=== PATIENT | male | born 1955 | race Caucasian/White ===

== ENCOUNTER 2022-10-02 14:53 | Emergency (ER) | payer MEDICARE, OTHER ==
[~2022-10-02] VITALS: Ht 195 cm; Wt 97.0 kg
[2022-10-02] MEDS ORDERED: NS IV 1000 ML 1,000 ML IV SCH ×3 (15:15→19:00)
[2022-10-02] MEDS ORDERED: ONDANSETRON 4 MG/2 ML (SDV) Z0FRAN IVP ONE (15:15)
[2022-10-02 15:36] LABS: BASOPHILS % (AUTO) 0 % (0-10); EOSINOPHILS # (AUTO) 0.1 10^3/uL (0.0-0.3); EOSINOPHILS % (AUTO) 0 % (0-10); LYMPHOCYTES # (AUTO) 0.9 10^3/uL (1.0-4.0); LYMPHOCYTES % (AUTO) 4 % (12-44); MEAN CORPUSCULAR HEMOGLOBIN 31 pg (25-34); MEAN CORPUSCULAR HGB CONC 36 g/dL (32-36); MEAN CORPUSCULAR VOLUME 86 fL (80-99); MEAN PLATELET VOLUME 11.2 fL (9.0-12.2); MONOCYTES # (AUTO) 1.6 10^3/uL (0.0-1.0); MONOCYTES % (AUTO) 7 % (0-12); NEUTROPHILS # (AUTO) 19.4 10^3/uL (1.8-7.8); NEUTROPHILS % (AUTO) 86 % (42-75); PLATELET COUNT 247 10^3/uL (130-400); WHITE BLOOD COUNT 22.5 10^3/uL (4.3-11.0)
[2022-10-02 15:43] LABS: HEMOGLOBIN 4.3 g/dL (13.3-17.7)
[2022-10-02 15:44] LABS: HEMATOCRIT 12 % (40-54)
--- NOTE | 2022-10-02 15:48 | Diagnostic Imaging Report ---
EXAMINATION: CT abdomen and pelvis without contrast. TECHNIQUE: Multiple contiguous axial images were obtained through the abdomen and pelvis without the use of intravenous contrast. All CT scans use one or more of the following dose optimizing techniques: Automated exposure control, MA and/or KvP adjustment based on patient size and exam type or iterative reconstruction. HISTORY: Abdominal pain, nausea and vomiting and diarrhea x10 days. COMPARISON: None available. FINDINGS: Lung bases: The lung bases are clear. Solid organs: The liver is normal. The gallbladder is normal. There is no biliary ductal dilation. Pancreas is normal. Spleen is normal. There is nodular thickening of the adrenal glands bilaterally with Hounsfield units of approximately 0 suggestive of adenomatous change. The kidneys are normal without visualized calculus or hydronephrosis. Bowel: The stomach and small bowel are normal without obstruction. The colon is normal. The appendix is normal. Peritoneum: There is no intraperitoneal free fluid or free air. No suspicious lymphadenopathy. Vasculature: Calcification of the aorta without aneurysm. Musculoskeletal: Degenerative changes of the spine without suspicious osseous lesion or compression fracture. Pelvis: The prostate gland is normal. The urinary bladder is normal. IMPRESSION: 1. No acute abnormality in the abdomen or pelvis. Dictated by: Dictated on workstation # [id number]
[2022-10-02] MEDS ORDERED: PANTOPRAZOLE 40 MG (PROTONIX) VIAL IV ONE (16:00)
[2022-10-02] MEDS ORDERED: PANTOPRAZOLE INJECTION 200 MG in NS (IVPB) 100 ML IV SCH (16:00)
[2022-10-02] MEDS ORDERED: fentaNYL INJ 100 MCG/2 ML AMP IVP ONE (16:00)
[2022-10-02 16:03] LABS: CARBON DIOXIDE 13 MMOL/L (21-32); CHLORIDE 85 MMOL/L (98-107); CREATININE SERUM 10.47 MG/DL (0.60-1.30); GFR ESTIMATED 5; POTASSIUM 4.4 MMOL/L (3.6-5.0)
[2022-10-02 16:04] LABS: ALANINE AMINOTRANSFERASE 23 U/L (0-55); ALKALINE PHOSPHATASE 93 U/L (40-136); BILIRUBIN,TOTAL 0.3 MG/DL (0.1-1.0); CALCIUM 8.4 MG/DL (8.5-10.1); GLUCOSE 142 MG/DL (70-105); LIPASE 39 U/L (8-78); TOTAL PROTEIN 4.4 GM/DL (6.4-8.2)
[2022-10-02 16:06] LABS: BUN/CREATININE RATIO 22; SODIUM 123 MMOL/L (135-145)
[2022-10-02] MEDS ORDERED: D5 NS 1000 ML IV SOLUTION 1,000 ML IV SCH (16:15)
--- NOTE | 2022-10-02 16:18 | ED Abdominal Pain ---
General Chief Complaint: General Problems/Pain Stated Complaint: WEAKNESS N/V Nursing Triage Note: Patient has presented to ER with body aches, weakness, nausea and vomiting for last 10 days. He reports that he stopped smoking 10 days ago, and he had been drinking a pint of alchohol daily until 10 days ago when he stopped. He also had his last marijuana 10 days ago. Source of Information: Patient, EMS, EMS Notes Reviewed, RN Notes Reviewed Exam Limitations: Other (Poor historian) History of Present Illness Date Seen by Provider: Oct 02, 2022 Time Seen by Provider: 15:10 Initial Comments 66-year-old male patient brought in by EMS because of nausea and vomiting and diarrhea and generalized weakness for the last 10 days. Patient stated he had 5-10 episodes of vomiting a day and 3-6 episodes of diarrhea every day for the last 10 days and few days ago1 day he had bloody stool and vomiting that lasted for only 1 day. Patient complaining of lower abdominal pain as a sharp and caused pain and rated his pain 10/10. Patient complaining of problems with his urination and stated it takes him a long time to urinate and had decrease of urine output. Patient denies fever and chills but complaining of generalized weakness and anorexia. Patient stated he decided to leave his home today to go to his primary care physician but unable to walk and turn on his car and called 911. Patient stated he usually drinks 1 pint of whiskey a day intermittently for several years and quit drinking 10 days ago. Patient also stated he smoked marijuana but did not have any marijuana use for the last 10 days. Allergies and Home Medications Allergies Coded Allergies: No Known Drug Allergies (Unverified , 10/02/22) Patient Home Medication List Home Medication List Reviewed: Yes Review of Systems Review of Systems Constitutional: see HPI EENTM: See HPI Respiratory: See HPI Cardiovascular: See HPI Gastrointestinal: See HPI Genitourinary: See HPI Skin: see HPI Psychiatric/Neurological: See HPI Endocrine: See HPI Hematologic/Lymphatic: See HPI All Other Systems Reviewed Negative Unless Noted: Yes Past Uhqloul-Wkguks-Oqjijl Hx Patient Social History Tobacco Use?: Yes Tobacco type used: Cigarettes Use of E-Cig and/or Vaping dev: No Substance use?: Yes Substance type: Marijuana Alcohol Use?: Yes Alcohol type: Hard Liquor Alcohol Frequency: Daily Physical Exam Vital Signs Vital Signs - First Documented 10/02/22 15:10 Temp 35.9 Pulse 91 Resp 18 B/P (MAP) 97/54 (68) Pulse Ox 100 O2 Delivery Room Air Capillary Refill : Height/Weight/BMI Height: '" Weight: lbs. oz. kg; 25.00 BMI Method: General Appearance: moderate distress HEENT: PERRL/EOMI, pale conjunctivae (R), pale conjunctivae (L), other (Dry oral mucosa) Neck: non-tender, full range of motion Respiratory: chest non-tender, lungs clear, normal breath sounds Cardiovascular: normal peripheral pulses, regular rate, rhythm, no edema Gastrointestinal: normal bowel sounds, non tender, soft, no organomegaly Extremities: normal range of motion, non-tender Back: normal inspection Neurologic/Psychiatric: alert, oriented x 3 Skin: pallor Focused Exam Lactate Level 10/02/22 15:20: Lactic Acid Level 0.94 Lactic Acid Level Laboratory Tests Test 10/02/22 15:20 Lactic Acid Level 0.94 MMOL/L (0.50-2.00) Progress/Results/Core Measures Results/Orders Lab Results Laboratory Tests Test 10/02/22 15:20 10/02/22 16:00 10/02/22 16:10 10/02/22 16:30 Range/Units White Blood Count 22.5 H 4.3-11.0 10^3/uL Red Blood Count 1.38 L 4.30-5.52 10^6/uL Hemoglobin 4.3 *L 13.3-17.7 g/dL Hematocrit 12 *L 40-54 % Mean Corpuscular Volume 86 80-99 fL Mean Corpuscular Hemoglobin 31 25-34 pg Mean Corpuscular Hemoglobin Concent 36 32-36 g/dL Red Cell Distribution Width 14.9 H 10.0-14.5 % Platelet Count 247 130-400 10^3/uL Mean Platelet Volume 11.2 9.0-12.2 fL Immature Granulocyte % (Auto) 3 % Neutrophils (%) (Auto) 86 H 42-75 % Lymphocytes (%) (Auto) 4 L 12-44 % Monocytes (%) (Auto) 7 0-12 % Eosinophils (%) (Auto) 0 0-10 % Basophils (%) (Auto) 0 0-10 % Neutrophils # (Auto) 19.4 H 1.8-7.8 10^3/uL Lymphocytes # (Auto) 0.9 L 1.0-4.0 10^3/uL Monocytes # (Auto) 1.6 H 0.0-1.0 10^3/uL Eosinophils # (Auto) 0.1 0.0-0.3 10^3/uL Basophils # (Auto) 0.0 0.0-0.1 10^3/uL Immature Granulocyte # (Auto) 0.6 H 0.0-0.1 10^3/uL Neutrophils % (Manual) 87 % Lymphocytes % (Manual) 2 % Monocytes % (Manual) 6 % Eosinophils % (Manual) 1 % Band Neutrophils 4 % Platelet Estimate NORMAL Hypochromasia MODERATE Microcytosis SLIGHT Prothrombin Time 16.9 H 12.2-14.7 SEC INR Comment 1.3 0.8-1.4 Activated Partial Thromboplast Time 30 24-35 SEC Sodium Level 123 *L 135-145 MMOL/L Potassium Level 4.4 3.6-5.0 MMOL/L Chloride Level 85 L 98-107 MMOL/L Carbon Dioxide Level 13 L 21-32 MMOL/L Anion Gap 25 H 5-14 MMOL/L Blood Urea Nitrogen 231 *H 7-18 MG/DL Creatinine 10.47 H 0.60-1.30 MG/DL Estimat Glomerular Filtration Rate 5 BUN/Creatinine Ratio 22 Glucose Level 142 H 70-105 MG/DL Lactic Acid Level 0.94 0.50-2.00 MMOL/L Calcium Level 8.4 L 8.5-10.1 MG/DL Corrected Calcium 10.0 8.5-10.1 MG/DL Magnesium Level 2.3 1.6-2.4 MG/DL Total Bilirubin 0.3 0.1-1.0 MG/DL Aspartate Amino Transf (AST/SGOT) 17 5-34 U/L Alanine Aminotransferase (ALT/SGPT) 23 0-55 U/L Alkaline Phosphatase 93 40-136 U/L Total Protein 4.4 L 6.4-8.2 GM/DL Albumin 2.0 L 3.2-4.5 GM/DL Lipase 39 8-78 U/L Serum Alcohol < 10 <10 MG/DL Stool Occult Blood Immunoassay POSITIVE H NEGATIVE Urine Color YELLOW Urine Clarity CLOUDY Urine pH 6.0 5-9 Urine Specific [place] 1.010 L 1.016-1.022 Urine Protein TRACE H NEGATIVE Urine Glucose (UA) NEGATIVE NEGATIVE Urine Ketones NEGATIVE NEGATIVE Urine Nitrite POSITIVE H NEGATIVE Urine Bilirubin NEGATIVE NEGATIVE Urine Urobilinogen 0.2 < = 1.0 MG/DL Urine Leukocyte Esterase 3+ H NEGATIVE Urine RBC (Auto) 2+ H NEGATIVE Urine RBC 2-5 H /HPF Urine WBC >100 H /HPF Urine Squamous Epithelial Cells NONE /HPF Urine Crystals NONE /LPF Urine Bacteria LARGE H /HPF Urine Casts NONE /LPF Urine Mucus NEGATIVE /LPF Urine Culture Indicated CULTURE PENDING Urine Opiates Screen NEGATIVE NEGATIVE Urine Oxycodone Screen NEGATIVE NEGATIVE Urine Methadone Screen NEGATIVE NEGATIVE Urine Propoxyphene Screen NEGATIVE NEGATIVE Urine Barbiturates Screen NEGATIVE NEGATIVE Ur Tricyclic Antidepressants Screen NEGATIVE NEGATIVE Urine Phencyclidine Screen NEGATIVE NEGATIVE Urine Amphetamines Screen NEGATIVE NEGATIVE Urine Methamphetamines Screen NEGATIVE NEGATIVE Urine Benzodiazepines Screen NEGATIVE NEGATIVE Urine Cocaine Screen NEGATIVE NEGATIVE Urine Cannabinoids Screen NEGATIVE NEGATIVE Blood Gas Puncture Site L WRIST Blood Gas Patient Temperature 35.9 Arterial Blood pH 7.38 7.37-7.43 Arterial Blood Partial Pressure CO2 27 L 35-45 MMHG Arterial Blood Partial Pressure O2 92 79-93 MMHG Arterial Blood HCO3 16 *L 23-27 MMOL/L Arterial Blood Total CO2 16.8 L 21.0-31.0 MMOL/L Arterial Blood Oxygen Saturation 97 94-100 % Arterial Blood Base Excess -7.7 L -2.5-2.5 MMOL/L Devan Test UNK Blood Gas Ventilator Setting NO Blood Gas Inspired Oxygen ROOM AIR My Orders Orders - KALIE FARRIS MD Cbc With Automated Diff (10/02/22 15:10) Comprehensive Metabolic Panel (10/02/22 15:10) Urinalysis (10/02/22 15:10) Urine Culture (10/02/22 15:10) Protime With Inr (10/02/22 15:10) Partial Thromboplastin Time (10/02/22 15:10) Ed Iv/Invasive Line Start (10/02/22 15:10) Lactic Acid Analyzer (10/02/22 15:10) Ns Iv 1000 Ml (Sodium Chloride 0.9%) (10/02/22 15:15) Lipase (10/02/22 15:10) Alcohol (10/02/22 15:10) Ondansetron Injection (Zofran Injectio (10/02/22 15:15) Ct Abdomen/Pelvis Wo (10/02/22 15:10) Manual Differential (10/02/22 15:20) Occult Blood Stool (10/02/22 15:52) Pantoprazole Injection (Protonix Injecti (10/02/22 16:00) Ns (Ivpb) (Sodium C... W/Pantoprazole In (10/02/22 16:00) Fentanyl Inj (Sublimaze Injection) (10/02/22 16:00) Magnesium (10/02/22 16:10) Phosphorus (10/02/22 16:10) Arterial Blood Gas (10/02/22 16:10) D5 Ns 1000 Ml Iv Solution (Dextrose 5%/0 (10/02/22 16:15) Drug Screen Stat (Urine) (10/02/22 16:10) Ns Iv 1000 Ml (Sodium Chloride 0.9%) (10/02/22 17:15) Ceftriaxone Iv/Im (Rocephin Iv/Im) (10/02/22 18:00) Sodium Bicarbonate 8.4% Syr (Sodium Bica (10/02/22 18:00) Albuterol/Ipra Inhalation Soln (Duoneb I (10/02/22 18:15) Svn Small Volume Nebulizer (10/02/22 18:13) Ns Iv 1000 Ml (Sodium Chloride 0.9%) (10/02/22 19:00) Medications Given in ED Current Medications Medications Dose Ordered Sig/Angle Route Start Time Stop Time Status Last Admin Dose Admin Albuterol/ Ipratropium 3 ml ONCE ONCE INH 10/02/22 18:15 10/02/22 18:16 DC 10/02/22 18:17 3 ML Ceftriaxone Sodium 1000 mg/ Sodium Chloride 50 ml @ 100 mls/hr ONCE ONCE IV 10/02/22 18:00 10/02/22 18:29 DC 10/02/22 17:54 100 MLS/HR Fentanyl Citrate 50 mcg ONCE ONCE IVP 10/02/22 16:00 10/02/22 16:01 DC 10/02/22 16:00 50 MCG Ondansetron HCl 4 mg ONCE ONCE IVP 10/02/22 15:15 10/02/22 15:16 DC 10/02/22 15:55 4 MG Pantoprazole 80 mg ONCE ONCE IV 10/02/22 16:00 10/02/22 16:01 DC 10/02/22 16:01 80 MG Sodium Bicarbonate 50 meq ONCE ONCE IV 10/02/22 18:00 10/02/22 18:01 DC 10/02/22 17:53 50 MEQ Vital Signs/I&O 10/02/22 10/02/22 10/02/22 15:10 18:03 18:38 Temp 35.9 36.6 36.6 Pulse 91 95 93 Resp 18 16 16 B/P (MAP) 97/54 (68) 100/50 88/50 (63) Pulse Ox 100 96 O2 Delivery Room Air Room Air Room Air Blood Pressure Mean: 68 Progress Progress Note : Progress Note 66-year-old male patient brought in by EMS because of nausea and vomiting and diarrhea and abdominal pain for 10 days and generalized weakness. Patient had axillary temperature of 97.9. Patient had blood pressure of 90s/50s at arrival to ER without tachycardia and treated with 1 L of normal saline bolus with improvement of his blood pressure to more than 100. Patient was pale and dehydrated. Patient had hemoglobin of 4.3 and positive guaiac test. White count was 22.5 with negative lactic acid. CMP showed sodium of 123 and chloride of 85 and BUN of 231 and creatinine of 10.5. ABG showed bicarb of 16. UA showed UTI. Liver enzyme was unremarkable. Blood alcohol was less than 10. UDS was negative. Patient treated with normal saline, Protonix, Zofran, fentanyl, Rocephin and IV bicarb. Because of lack of grading supervisor at [facility] decided to transfer patient to higher level of care and patient requested [facility]. For management 1 call was contacted at [phone] Tolu Childers on-call hospitalist was consulted at [phone] and accepted admission. Patient and his granddaughter was informed about test result and plan of care and need for transfer and all questions was addressed. Patient had drop of blood pressure to 80s while waiting for transfer and treated with 1 more liter of bolus of IV fluids with improvement of blood pressure to more than 90s. Patient also stated he usually takes nebulizer treatment belonged to his and asking for nebulizer even his O2 sat was 97% and treated with DuoNeb. Diagnostic Imaging Diagonstic Imaging: CT Plain Films/CT/US/NM/MRI: abdomen, pelvis Comments CT abdomen pelvis without contrast interpreted by radiologist and reviewed by me and showed: [facility] [place], [place] NAME: [facility] REC#: [id number] PT STATUS: REG ER : 1955 PHYSICIAN: KALIE FARRIS MD ADMIT DATE: 10/02/22/ER FS Signed Date of Exam:10/02/22 CT ABDOMEN/PELVIS WO EXAMINATION: CT abdomen and pelvis without contrast. TECHNIQUE: Multiple contiguous axial images were obtained through the abdomen and pelvis without the use of intravenous contrast. All CT scans use one or more of the following dose optimizing techniques: Automated exposure control, MA and/or KvP adjustment based on patient size and exam type or iterative reconstruction. HISTORY: Abdominal pain, nausea and vomiting and diarrhea x10 days. COMPARISON: None available. FINDINGS: Lung bases: The lung bases are clear. Solid organs: The liver is normal. The gallbladder is normal. There is no biliary ductal dilation. Pancreas is normal. Spleen is normal. There is nodular thickening of the adrenal glands bilaterally with Hounsfield units of approximately 0 suggestive of adenomatous change. The kidneys are normal without visualized calculus or hydronephrosis. Bowel: The stomach and small bowel are normal without obstruction. The colon is normal. The appendix is normal. Peritoneum: There is no intraperitoneal free fluid or free air. No suspicious lymphadenopathy. Vasculature: Calcification of the aorta without aneurysm. Musculoskeletal: Degenerative changes of the spine without suspicious osseous lesion or compression fracture. Pelvis: The prostate gland is normal. The urinary bladder is normal. IMPRESSION: 1. No acute abnormality in the abdomen or pelvis. Dictated by: Dictated on workstation # [id number] Dict: 10/02/22 1542 Trans: 10/02/22 1605 [id number] Interpreted by: AUBREY WALSH DO Electronically signed by: AUBREY WALSH DO 10/02/22 1605 Critical Care Note Critical Care Total Time (minutes) 80 Departure Communication (Admissions) Time/Spoke to Admitting Phy: 16:55 Dr Tolu Childers at [facility] accepted transfer and admission at 1654 Impression Primary Impression: Severe anemia Additional Impressions: GI bleeding Qualified Codes: K92.2 - Gastrointestinal hemorrhage, unspecified Acute renal failure Qualified Codes: N17.9 - Acute kidney failure, unspecified UTI (urinary tract infection) Qualified Codes: N39.0 - Urinary tract infection, site not specified; R31.9 - Hematuria, unspecified Acute gastroenteritis Generalized weakness Hypochloremia Metabolic acidosis Disposition: 02 XFER [facility]-TRM HOSP ([facility]) Condition: Critical Admissions Decision to Admit Reason: Admit from ER (General) Decision to Admit/Date: Oct 02, 2022 Time/Decision to Admit Time: 16:55 Transfer Transfer Reason: Exceeds level of care Time Spoke to Accepting Phy: 16:[address] Tolu Childers accepted admission to [facility] at 1654 Transfer Time: 19:20 Method of Transfer: EMS KALIE FARRIS MD Oct 02, 2022 16:18
[2022-10-02 16:20] LABS: INR 1.3 (0.8-1.4); PROTHROMBIN TIME PATIENT 16.9 SEC (12.2-14.7)
[2022-10-02 16:38] LABS: BILIRUBIN,URINE NEGATIVE (NEGATIVE); CLARITY,URINE CLOUDY; COLOR,URINE YELLOW; GLUCOSE, URINE (UA) NEGATIVE (NEGATIVE); KETONES,URINE NEGATIVE (NEGATIVE); LEUKOCYTE ESTERASE ,URINE 3+ (NEGATIVE); NITRITE,URINE POSITIVE (NEGATIVE); PROTEIN,URINE TRACE (NEGATIVE)
[2022-10-02 16:45] LABS: BACTERIA,URINE LARGE /HPF; WBC,URINE >100 /HPF
[2022-10-02 16:46] LABS: MAGNESIUM 2.3 MG/DL (1.6-2.4)
[2022-10-02 16:49] LABS: AMPHETAMINE SCREEN, URINE NEGATIVE (NEGATIVE); BARBITURATE SCREEN URINE NEGATIVE (NEGATIVE); BENZODIAZEPINES SCREEN URINE NEGATIVE (NEGATIVE); CANNABINOID SCREEN, URINE NEGATIVE (NEGATIVE); COCAINE SCREEN URINE NEGATIVE (NEGATIVE); METHADONE STAT NEGATIVE (NEGATIVE); OPIATE SCREEN URINE NEGATIVE (NEGATIVE); OXYCODONE STAT NEGATIVE (NEGATIVE); PROPOXYPHENE STAT NEGATIVE (NEGATIVE); TRICYCLIC ANTIDEPRESSANTS SCRE NEGATIVE (NEGATIVE)
[2022-10-02 16:50] LABS: ABG BASE EXCESS -7.7 MMOL/L (-2.5-2.5); ABG OXYGEN SATURATION 97 % (94-100); ABG PCO2 27 MMHG (35-45); ABG PH 7.38 (7.37-7.43); ABG PO2 92 MMHG (79-93); ABG TCO2 16.8 MMOL/L (21.0-31.0)
[2022-10-02 16:51] LABS: INSPIRED O2 ROOM AIR; PATIENT TEMP 35.9; VENTILATOR NO
[2022-10-02] MEDS ORDERED: NS (IVPB) 0 ML ONE (17:04)
[2022-10-02 17:05] LABS: BAND NEUTROPHILS 4 %; EOSINOPHILS % (MANUAL) 1 %; LYMPHOCYTES % (MANUAL) 2 %; MONOCYTES % (MANUAL) 6 %; NEUTROPHILS % (MANUAL) 87 %
[2022-10-02 17:06] LABS: HYPOCHROMASIA MODERATE; MICROCYTOSIS SLIGHT; PLATELET ESTIMATE NORMAL
[2022-10-02] MEDS ORDERED: SODIUM BICARB 8.4% 50 MEQ/50 ML (ABBOTT) SYR IV ONE (18:00)
[2022-10-02] MEDS ORDERED: cefTRIAXone IV/IM 1,000 MG in NS (IVPB) 50 ML IV ONE (18:00)
[2022-10-02 18:03] VITALS: BP 100/50
[2022-10-02] MEDS ORDERED: RT-ALBUTEROL/IPRATROPIUM 3 ML (DUONEB) VIAL INH ONE (18:15)
== END 2022-10-02 19:08 | disposition short-term general hospital (02) ==
LOC: ER FS 14:55
DX: N17.9 Acute kidney failure, unspecified (principal); D64.9 Anemia, unspecified; N39.0 Urinary tract infection, site not specified; K52.9 Noninfective gastroenteritis and colitis, unspecified; E87.20 Acidosis, unspecified; E87.8 Other disorders of electrolyte and fluid balance, not elsewhere classified; F17.210 Nicotine dependence, cigarettes, uncomplicated
CPT/HCPCS: 36415; 74176; 80053; 80306; 81000; 82274; 82805; 83605; 83690; 83735; 84100; 85007; 85027; 85610; 85730; 87088; G0480; 80320; 99291

== ENCOUNTER 2022-12-28 17:22 | Emergency (ER) | payer MEDICARE ==
[~2022-12-28] VITALS: Ht 200 cm; Wt 100.0 kg
[2022-12-28 17:36] LABS: BASOPHILS % (AUTO) 0 % (0-10); EOSINOPHILS % (AUTO) 0 % (0-10); HEMATOCRIT 32 % (40-54); HEMOGLOBIN 10.4 g/dL (13.3-17.7); LYMPHOCYTES # (AUTO) 1.1 10^3/uL (1.0-4.0); LYMPHOCYTES % (AUTO) 4 % (12-44); MEAN CORPUSCULAR HEMOGLOBIN 28 pg (25-34); MEAN CORPUSCULAR HGB CONC 32 g/dL (32-36); MEAN CORPUSCULAR VOLUME 86 fL (80-99); MEAN PLATELET VOLUME 9.8 fL (9.0-12.2); MONOCYTES # (AUTO) 1.6 10^3/uL (0.0-1.0); MONOCYTES % (AUTO) 6 % (0-12); NEUTROPHILS # (AUTO) 21.8 10^3/uL (1.8-7.8); NEUTROPHILS % (AUTO) 86 % (42-75); PLATELET COUNT 289 10^3/uL (130-400); WHITE BLOOD COUNT 25.3 10^3/uL (4.3-11.0)
--- NOTE | 2022-12-28 17:44 | Diagnostic Imaging Report ---
INDICATION: Fever. COMPARISON: CT abdomen and pelvis 10/02/2022. FINDINGS: The lungs are hyperinflated. There are prominent interstitial changes which are likely chronic. There is no evidence of pneumonia. There is no edema. There is no effusion. No pneumothorax. Heart is mildly prominent. Central pulmonary vascularity is appropriate IMPRESSION: 1. Prominent pulmonary interstitial markings and hyperinflation may relate to underlying COPD. Correlate for any known smoking history. 2. No evidence of superimposed pneumonia or edema. Dictated by: Dictated on workstation # [id number]
[2022-12-28 18:11] LABS: ALBUMIN 3.4 GM/DL (3.2-4.5); BILIRUBIN,TOTAL 0.8 MG/DL (0.1-1.0); CALCIUM 9.1 MG/DL (8.5-10.1); CREATININE SERUM 5.14 MG/DL (0.60-1.30); POTASSIUM 5.1 MMOL/L (3.6-5.0); TOTAL PROTEIN 7.3 GM/DL (6.4-8.2)
[2022-12-28] MEDS ORDERED: NS IV 1000 ML 1,000 ML IV SCH ×2 (18:15→18:30)
[2022-12-28] MEDS ORDERED: IOHEXOL 350 MG/ML 100 ML (OMNIPAQUE 350) VIAL IV ONE (18:15)
[2022-12-28] MEDS ORDERED: HOLD METFORMIN - RECEIVED CONTRAST 20 ML VIAL IV SCH (18:15)
[2022-12-28] MEDS ORDERED: NS 100 ML (IVPB) BAG IV ONE (18:15)
--- NOTE | 2022-12-28 18:17 | ED General ---
General Chief Complaint: Fever-Adult/Adol Stated Complaint: SOB/WHEEZING; WKNS; FEVER Nursing Triage Note: Patient has been brought to ER by EMS with cc of generalized weakness, wheezing, decreased breath sounds per EMS. Patient reports a fever for two days and states that he cannot sleep. Source of Information: Patient, EMS, Family (Granddaughter) Exam Limitations: No Limitations History of Present Illness Date Seen by Provider: Dec 28, 2022 Time Seen by Provider: 17:25 Initial Comments This 67-year-old gentleman presents to the emergency room via EMS with co mplaints of weakness, wheezing, altered mental status, and fever for the past 2 days. EMS and granddaughter provide much of the history. The initial call out for EMS was extreme pain but without a defined location. Temperature was greater than 102 F on arrival. Oxygen saturation for EMS was 95% on room air. They appreciated wheezes on exam and administered a DuoNeb treatment followed by an albuterol treatment which seemed to improve his breathing. They also administered Solu-Medrol 125 mg IV. Heart rate was noted to be in the 130s and sinus. Patient is alert and responding to questions, but he is a poor historian. He is easily disoriented. He had trouble recalling the month but eventually was able to state December as the present month. He knew he was in a hospital but did not recall his age. Patient reports having recent falls including a fall in the bathtub a few days ago. He has acute on chronic back pain based on his limited history. He also describes some vague abdominal pain. He appears to be globally weak, generally uncomfortable, and moves all 4 extremities. There is no obvious traumatic injury on exam. His back is generally tender without an area of focal tenderness. Patient had a recent admission the end of September and early October at [facility] in [place] related to GI bleed. His hemoglobin dropped to near 4. He was also noted to have severe renal failure at that time with a creatinine above 10. His baseline creatinine after discharge is unknown. Granddaughter reports he also had UTI during the admission. He was previously a heavy alcohol consumer but reports no alcohol consumption since being dismissed from [facility]. Patient smells of urine and is presumed to be incontinent. He reports frequent nocturia. He has been using a wastebasket at the side of his bed the last few days for stooling and urinating. He did have some vomiting previously but denies present nausea or recent vomiting. He denies diarrhea. His primary care provider is Dr. Carranza at [facility]. Allergies and Home Medications Allergies Coded Allergies: No Known Drug Allergies (Unverified , 10/02/22) Patient Home Medication List Home Medication List Reviewed: Yes Review of Systems Review of Systems Constitutional: see HPI EENTM: no symptoms reported Respiratory: see HPI Cardiovascular: see HPI Gastrointestinal: see HPI Genitourinary: see HPI Musculoskeletal: see HPI Skin: no symptoms reported Psychiatric/Neurological: See HPI Hematologic/Lymphatic: No Symptoms Reported Immunological/Allergic: no symptoms reported Past Gmhpbip-Bhonhe-Awvtaa Hx Patient Social History Tobacco Use?: Yes Tobacco type used: Cigarettes Substance use?: Yes Substance type: Marijuana Alcohol Use?: No (Previous heavy drinker) Past Medical History Surgeries: No (None reported) Respiratory: Yes COPD Cardiac: Yes Hypertension Neurological: No Genitourinary: Yes (Frequent nocturia, history UTI) Gastrointestinal: Yes Gastrointestinal Bleed Musculoskeletal: Yes Chronic Back Pain Endocrine: No HEENT: No Cancer: No Psychosocial: Yes (Prior alcohol abuse) Physical Exam-Suspected Sepsis Physical Exam Vital Signs Vital Signs - First Documented 12/28/22 17:24 Temp 39.2 Pulse 131 Resp 18 B/P (MAP) 141/105 (117) Pulse Ox 97 O2 Delivery Room Air Capillary Refill : Blood Pressure Mean: 117 Height, Weight, BMI Height: '" Weight: lbs. oz. kg; 25.00 BMI Method: General Appearance: WD/WN, Mild Distress, Other (Ill-appearing) HEENT: PERRL/EOMI, Normal ENT Inspection, Other (Mucous membranes somewhat dry) Neck: Normal Inspection, Non Tender Respiratory: Lungs Clear, Normal Breath Sounds, No Accessory Muscle Use, No Respiratory Distress, Other (Wheezing resolved, mild tachypnea) Cardiovascular: No Edema, No Murmur, Tachycardia Gastrointestinal: Normal Bowel Sounds, Soft; No Distended; Tenderness (Mild, generalized in the lower abdomen) Back: Normal Inspection, Vertebral Tenderness (Mild generalized tenderness throughout the thoracolumbar spine) Extremity: Normal Inspection, No Pedal Edema, Other (No obvious injury to the extremities) Neurologic/Psychiatric: Alert, No Motor/Sensory Deficits, bleacher pulp II-XII Norm as Tested, Other (Generalized weakness, somewhat disoriented, mentation sluggish) Skin: normal color, warm/dry Focused Exam Lactate Level 12/28/22 17:25: Lactic Acid Level 1.58 Lactic Acid Level Laboratory Tests Test 12/28/22 17:25 Lactic Acid Level 1.58 MMOL/L (0.50-2.00) Progress/Results/Core Measures Suspected Sepsis SIRS Temperature: Pulse: 131 Respiratory Rate: 18 Laboratory Tests 12/28/22 17:25: White Blood Count 25.3H Blood Pressure 141 /105 Mean: 117 12/28/22 17:25: Lactic Acid Level 1.58 Laboratory Tests 12/28/22 17:25: Creatinine 5.14H, INR Comment 1.3, Platelet Count 289, Total Bilirubin 0.8 Results/Orders Lab Results Laboratory Tests Test 12/28/22 17:25 12/28/22 17:34 12/28/22 18:45 Range/Units White Blood Count 25.3 H 4.3-11.0 10^3/uL Red Blood Count 3.75 L 4.30-5.52 10^6/uL Hemoglobin 10.4 L 13.3-17.7 g/dL Hematocrit 32 L 40-54 % Mean Corpuscular Volume 86 80-99 fL Mean Corpuscular Hemoglobin 28 25-34 pg Mean Corpuscular Hemoglobin Concent 32 32-36 g/dL Red Cell Distribution Width 14.1 10.0-14.5 % Platelet Count 289 130-400 10^3/uL Mean Platelet Volume 9.8 9.0-12.2 fL Immature Granulocyte % (Auto) 3 % Neutrophils (%) (Auto) 86 H 42-75 % Lymphocytes (%) (Auto) 4 L 12-44 % Monocytes (%) (Auto) 6 0-12 % Eosinophils (%) (Auto) 0 0-10 % Basophils (%) (Auto) 0 0-10 % Neutrophils # (Auto) 21.8 H 1.8-7.8 10^3/uL Lymphocytes # (Auto) 1.1 1.0-4.0 10^3/uL Monocytes # (Auto) 1.6 H 0.0-1.0 10^3/uL Eosinophils # (Auto) 0.0 0.0-0.3 10^3/uL Basophils # (Auto) 0.0 0.0-0.1 10^3/uL Immature Granulocyte # (Auto) 0.7 H 0.0-0.1 10^3/uL Neutrophils % (Manual) 89 % Lymphocytes % (Manual) 4 % Monocytes % (Manual) 5 % Band Neutrophils 2 % Toxic Granulation 1+ Platelet Estimate ADEQUATE Blood Morphology Comment NORMAL Prothrombin Time 17.1 H 12.2-14.7 SEC INR Comment 1.3 0.8-1.4 Activated Partial Thromboplast Time 35 24-35 SEC Sodium Level 129 L 135-145 MMOL/L Potassium Level 5.1 H 3.6-5.0 MMOL/L Chloride Level 94 L 98-107 MMOL/L Carbon Dioxide Level 18 L 21-32 MMOL/L Anion Gap 17 H 5-14 MMOL/L Blood Urea Nitrogen 52 H 7-18 MG/DL Creatinine 5.14 H 0.60-1.30 MG/DL Estimat Glomerular Filtration Rate 12 BUN/Creatinine Ratio 10 Glucose Level 130 H 70-105 MG/DL Lactic Acid Level 1.58 0.50-2.00 MMOL/L Calcium Level 9.1 8.5-10.1 MG/DL Corrected Calcium 9.6 8.5-10.1 MG/DL Total Bilirubin 0.8 0.1-1.0 MG/DL Aspartate Amino Transf (AST/SGOT) 13 5-34 U/L Alanine Aminotransferase (ALT/SGPT) 9 0-55 U/L Alkaline Phosphatase 51 40-136 U/L Total Protein 7.3 6.4-8.2 GM/DL Albumin 3.4 3.2-4.5 GM/DL Serum Alcohol < 10 <10 MG/DL Influenza Type A (RT-PCR) Not Detected Not Detecte Influenza Type B (RT-PCR) Not Detected Not Detecte SARS-CoV-2 RNA (RT-PCR) Not Detected Not Detecte Urine Color YELLOW Urine Clarity SL CLOUDY Urine pH 6.0 5-9 Urine Specific [place] 1.010 L 1.016-1.022 Urine Protein 2+ H NEGATIVE Urine Glucose (UA) NEGATIVE NEGATIVE Urine Ketones NEGATIVE NEGATIVE Urine Nitrite NEGATIVE NEGATIVE Urine Bilirubin NEGATIVE NEGATIVE Urine Urobilinogen 0.2 < = 1.0 MG/DL Urine Leukocyte Esterase 3+ H NEGATIVE Urine RBC (Auto) 2+ H NEGATIVE Urine RBC 10-25 H /HPF Urine WBC >100 H /HPF Urine Squamous Epithelial Cells NONE /HPF Urine Crystals NONE /LPF Urine Bacteria LARGE H /HPF Urine Casts NONE /LPF Urine Mucus NEGATIVE /LPF Urine Culture Indicated CULTURE PENDING Urine Opiates Screen NEGATIVE NEGATIVE Urine Oxycodone Screen NEGATIVE NEGATIVE Urine Methadone Screen NEGATIVE NEGATIVE Urine Propoxyphene Screen NEGATIVE NEGATIVE Urine Barbiturates Screen NEGATIVE NEGATIVE Ur Tricyclic Antidepressants Screen NEGATIVE NEGATIVE Urine Phencyclidine Screen NEGATIVE NEGATIVE Urine Amphetamines Screen NEGATIVE NEGATIVE Urine Methamphetamines Screen NEGATIVE NEGATIVE Urine Benzodiazepines Screen NEGATIVE NEGATIVE Urine Cocaine Screen NEGATIVE NEGATIVE Urine Cannabinoids Screen POSITIVE H NEGATIVE My Orders Orders - EVELIO RIZO MD Cbc With Automated Diff (12/28/22 17:25) Comprehensive Metabolic Panel (12/28/22 17:25) Blood Culture (12/28/22 17:25) Sputum Culture (12/28/22 17:25) Urinalysis (12/28/22 17:25) Urine Culture (12/28/22 17:25) Protime With Inr (12/28/22 17:25) Partial Thromboplastin Time (12/28/22 17:25) Chest 1 View Ap/Pa Only (12/28/22 17:25) Ed Iv/Invasive Line Start (12/28/22 17:25) Ed Iv/Invasive Line Start (12/28/22 17:25) Vital Signs Adult Sepsis Patie Q15M (12/28/22 17:25) O2 (12/28/22 17:25) Remove Rings In Anticipation O (12/28/22 17:25) Lactic Acid Analyzer (12/28/22 17:25) Covid 19 Inhouse Test (12/28/22 17:25) Influenza A And B By Pcr (12/28/22 17:25) Ct Head/Cervical Spine Wo (12/28/22 18:05) Ns Iv 1000 Ml (Ns Iv 1000 Ml) (12/28/22 18:15) Ct Thoracic/Lumbar Spine Wo (12/28/22 18:05) Iohexol Injection (Omnipaque 350 Mg/Ml 1 (12/28/22 18:15) Received Contrast (Hold Metformin- Contr (12/28/22 18:15) Ns (Ivpb) 100 Ml (Sodium Chloride 0.9% 1 (12/28/22 18:15) Manual Differential (12/28/22 17:25) Ct Chest/Abdomen/Pelvis Wo (12/28/22 18:14) Alcohol (12/28/22 18:16) Drug Screen Stat (Urine) (12/28/22 18:16) Lidocaine 2% (Urojet) (Lidocaine 2% (Uro (12/28/22 18:30) Gonzalez Cath (12/28/22 18:16) Acetaminophen Suppository (Acetaminophen (12/28/22 18:30) Ns Iv 1000 Ml (Ns Iv 1000 Ml) (12/28/22 18:30) Cefepime Injection (Cefepime Injection) (12/28/22 18:30) Medications Given in ED Current Medications Medications Dose Ordered Sig/Angle Route Start Time Stop Time Status Last Admin Dose Admin Acetaminophen 650 mg ONCE ONCE WV 12/28/22 18:30 12/28/22 18:31 DC 12/28/22 18:30 650 MG Cefepime HCl 2000 mg/Sodium Chloride 50 ml @ 100 mls/hr ONCE ONCE IV 12/28/22 18:30 12/28/22 18:59 DC 12/28/22 18:29 100 MLS/HR Lidocaine HCl 10 ml ONCE ONCE TOP 12/28/22 18:30 12/28/22 18:31 DC 12/28/22 18:30 10 ML Vital Signs/I&O 12/28/22 12/28/22 17:24 18:30 Temp 39.2 39.2 Pulse 131 Resp 18 B/P (MAP) 141/105 (117) Pulse Ox 97 O2 Delivery Room Air Capillary Refill : 2 Blood Pressure Mean: 117 Progress Note : Time: 19:43 Progress Note Report was received from EMS during triage. Orders for septic work-up were placed. Patient was interviewed and examined shortly thereafter. Labs were reviewed and interpreted by me in their entirety. Patient appears septic but not in septic shock. WBC was 25.3. Hemoglobin was 10.4. Platelets were 289. Chemistry was remarkable for hyponatremia with sodium of 129, slightly high potassium of 5.1, low CO2 of 18, high creatinine of 5.14, mild hyperglycemia of 130, and normal lactic acid of 1.58. Remainder of CMP was unremarkable. Urinalysis was grossly positive for pyuria with a large amount of WBC and bacteria present. Toxicology screen was positive only for marijuana. Thorough CT imaging was obtained due to patient's difficulty with reporting history and report of multiple falls and generalized pain. CT of the head and C-spine demonstrated questionable density of the falx. Subdural hematoma of the falx could not be excluded. CT imaging was viewed by me. No definite intracranial abnormality or cervical spine fracture was appreciated by my interpretation. Radiologist's report was reviewed as below. CT of the thoracolumbar spine was unremarkable for injuries per radiologist report below. CT chest, abdomen, and pelvis demonstrated some hydroureter and stranding on the right. No traumatic injuries were identified per radiologist report below. Patient is being treated with 2 L of IV normal saline. Initial antibiotic therapy after blood cultures is being provided with cefepime 2 g IV. Patient did not require any further respiratory treatments and he was stable on room air. Mentation was improving with therapies. Gonzalez catheter was placed and yielded approximately 175 mL of urine. Rectal Tylenol was administered. Heart rate improved to the 110s after treatments. Rhythm remains sinus. Case was reviewed with Dr. Rangel, ER physician at [facility]. Transfer to the [facility] ER was excepted as patient has a possible subdural hematoma and needs trauma screening in the ER by policy. Influenza and COVID-[address] Rangel did note that patient's last creatinine at [facility] before discharge was around 7. Diagnostic Imaging Diagonstic Imaging: Xray Plain Films/CT/US/NM/MRI: chest Comments NAME: [facility]ASE [facility] REC#: [id number] PT STATUS: REG ER : 1955 PHYSICIAN: EVELIO RIZO MD ADMIT DATE: 12/28/22/ER FS Signed Date of Exam:12/28/22 CHEST 1 VIEW AP/PA ONLY INDICATION: Fever. COMPARISON: CT abdomen and pelvis 10/02/2022. FINDINGS: The lungs are hyperinflated. There are prominent interstitial changes which are likely chronic. There is no evidence of pneumonia. There is no edema. There is no effusion. No pneumothorax. Heart is mildly prominent. Central pulmonary vascularity is appropriate IMPRESSION: 1. Prominent pulmonary interstitial markings and hyperinflation may relate to underlying COPD. Correlate for any known smoking history. 2. No evidence of superimposed pneumonia or edema. Dictated by: Dictated on workstation # [id number] Dict: 12/28/22 174 Trans: [id number] CVB [id number] Interpreted by: IMMANUEL SCANLON MD Electronically signed by: IMMANUEL SCANLON MD 12/28/221755 Plain Films/CT/US/NM/MRI: c-spine, head Comments NAME: CH[facility]BURN [facility] REC#: [id number] PT STATUS: REG ER : 1955 PHYSICIAN: EVELIO RIZO MD ADMIT DATE: 12/28/22/ER FS Signed Date of Exam:12/28/22 CT HEAD/CERVICAL SPINE WO Procedure: CT head and CT cervical spine without contrast. Technique: Multiple contiguous axial images were obtained through the brain and cervical spine without the use of intravenous contrast. Sagittal and coronal reformations through the cervical spine were then performed. Auto Exposure Controls were utilized during the CT exam to meet ALARA standards for radiation dose reduction. Date: December 28, 2022. Indication: 67-year-old male, altered mental status. Recurrent falls. Head and neck pain. Comparison: None. Findings: There are some motion limitations of the exam. There is no identified skull fracture. There is proportional prominence of the ventricles and additional CSF spaces consistent with mild to moderate cerebral volume loss. There is high attenuation along the falx which could relate to calcifications along the falx although small subdural hematoma is difficult to entirely exclude. There is no evidence of an acute intraparenchymal hemorrhage. There is no mass effect or midline shift. There are findings of encephalomalacia in the right frontal lobe. There is no identified facet joint subluxation or dislocation. There are multilevel facet degenerative changes of the cervical spine. There are multilevel advanced disc degenerative changes of the cervical spine. There is no asymmetric widening of the cervical disc heights. There is no prominent prevertebral soft tissue swelling. There is no identified acute fracture of the cervical spine. The visualized portions of the lung apices are clear. Impression: 1. High attenuation along the falx which may relate to calcifications along the falx although very small subdural hematoma is difficult to entirely exclude. Correlation with prior imaging may be of benefit. 2. No mass effect or midline shift. 3. Encephalomalacia in the right frontal lobe and mild to moderate cerebral volume loss. 4. No acute fracture of the cervical spine. 5. Multilevel degenerative changes of the cervical spine. Dictated by: Dictated on workstation # [id number] Dict: 12/28/22 1846 Trans: 12/28/221910 CV [id number] Interpreted by: FABIANA ALLAN MD Electronically signed by: FABIANA ALLAN MD 12/28/221910 Diagonstic Imaging: CT Plain Films/CT/US/NM/MRI: other (Thoracolumbar spine) Comments NAME: CHASE COBURN [facility] REC#: [id number] PT STATUS: REG ER : 1955 PHYSICIAN: EVELIO RIZO MD ADMIT DATE: 12/28/22/ER FS Signed Date of Exam:12/28/22 CT THORACIC/LUMBAR SPINE WO PROCEDURE: CT thoracic and lumbar spine without contrast. TECHNIQUE: Multiple contiguous axial images were obtained through the thoracic and lumbar spine without the use of intravenous contrast. Sagittal and coronal reformations were then performed. All CT scans use one or more of the following dose optimizing techniques: automated exposure control, MA and/or KvP adjustment based on a patient size and exam type, or iterative reconstruction. INDICATION: Altered mental status. Fall. Back pain. FINDINGS: Alignment of the thoracic spine is normal. The lumbar spine demonstrates slight degenerative retrolisthesis of L1 on L2. Alignment is otherwise normal. Within the thoracic spine, there are mild degenerative endplate changes with ventral osteophytes compatible with diffuse idiopathic skeletal hyperostosis. The facets are normally aligned. There is no facet joint or disc space widening. Vertebral body heights are maintained. There is no acute thoracic fracture. Within the lumbar spine, there is severe background degenerative disc disease and facet arthropathy with advanced multilevel endplate changes, multiple levels of vacuum disc phenomenon, endplate spurring and prominent hypertrophic facets. There are, however, no findings of an acute lumbar fracture. There is no high-grade thoracic canal stenosis. Within the lumbar spine, there appear to be severe narrowing of the central canal at the L3-L4 and L4-L5 levels due to disc bulging and facet arthropathy. The bones of the pelvis demonstrate no acute process. There is no evidence of a posterior rib fracture. The lungs are clear where visualized. Bilateral low density adrenal masses compatible with adenomas. There is partial visualization of some apparent right-sided hydronephrosis and right perinephric fat stranding. IMPRESSION: 1. Background degenerative features within the thoracic and lumbar spine without CT findings of an acute fracture or traumatic malalignment. 2. High-grade canal stenosis present at both the L3-L4 and L4-L5 levels. 3. Partial visualization of apparent right-sided hydronephrosis and right perinephric fat stranding. Dictated by: Dictated on workstation # [id number] Dict: 12/28/221848 Trans: 12/28/221915 [facility] [id number] Interpreted by: IMMANUEL SCANLON MD Electronically signed by: IMMANUEL SCANLON MD 12/28/221915 Diagonstic Imaging: CT Plain Films/CT/US/NM/MRI: chest, abdomen, pelvis Comments NAME: CHASE COBURN [facility] REC#: [id number] PT STATUS: REG ER : 1955 PHYSICIAN: EVELIO RIZO MD ADMIT DATE: 12/28/22/ER FS Signed Date of Exam:12/28/22 CT CHEST/ABDOMEN/PELVIS WO Procedure: CT chest, abdomen, and pelvis without contrast. Technique: Multiple contiguous axial images were obtained through the chest, abdomen, and pelvis without the use of intravenous contrast. Auto Exposure Controls were utilized during the CT exam to meet ALARA standards for radiation dose reduction. Date: December 28, 2022. Indication: 67-year-old male, altered mental status. Recurrent falls. Chest and abdominal pain. Comparison: CT abdomen and pelvis without contrast October 02, 2022. Findings: There is no identified pulmonary nodule or lung mass. There is no focal airspace consolidation. There is no pneumothorax. There is no sizable pleural effusion. The heart is not enlarged. There is no identified pericardial effusion. There is no abnormally enlarged mediastinal or axillary lymph node meeting CT size criteria for adenopathy. There is a low-attenuation right adrenal nodule which measures up to 4.2 cm in diameter. Internal attenuation is -1 Hounsfield unit compatible with adrenal adenoma. There are also smaller left-sided adrenal adenomas present as well. There is moderate right hydroureteronephrosis and stranding along the right ureter. There is no identified current ureteral stone. There is a punctate 1 to 2 mm nonobstructing right renal stone on axial image 94. There is no left hydronephrosis. The left urinary collecting system is not distended. Urinary bladder is unremarkable. The intestinal tract is not distended. There is inflammatory stranding in the right lower quadrant. There is no free intraperitoneal air. There is no well-demarcated drainable fluid collection. There is no particularly sizable volume free fluid in the abdomen or pelvis. There are atherosclerotic calcifications. There is no identified abnormally enlarged lymph node in the abdomen or pelvis meeting CT size criteria for adenopathy. Please see same day CT thoracic and lumbar spine report for findings of the thoracic and lumbar spine. There is no otherwise identified acute fracture at the level of the chest, abdomen, or pelvis. There are degenerative changes of the spine. Impression: 1. Moderate right hydroureteronephrosis without identified causative etiology. 2. Bilateral adrenal adenomas. 3. No identified acute abnormality at the level of the chest. Dictated by: Dictated on workstation # [id number] Dict: 12/28/221851 Trans: 12/28/221910 CV [id number] Interpreted by: FABIANA ALLAN MD Electronically signed by: FABIANA ALLAN MD 12/28/221910 Departure Impression Primary Impression: Sepsis Qualified Codes: A41.9 - Sepsis, unspecified organism Additional Impressions: Renal failure Qualified Codes: N19 - Unspecified kidney failure Urinary tract infection Qualified Codes: N39.0 - Urinary tract infection, site not specified Fall in bathtub Qualified Codes: W18.2XXA - Fall in (into) shower or empty bathtub, initial encounter Altered mental status Qualified Codes: R41.82 - Altered mental status, unspecified Abnormal CT scan, head Disposition: XFER SHT-TRM HOSP Condition: Stable Transfer Transfer Reason: Exceeds level of care Time Spoke to Accepting Phy: 19:25 Transfer Progress Notes Transfer accepted to the [facility] in [place] by Dr. Rangel, ER physician Transfer Time: 20:06 Transfer Facility: [facility] Method of Transfer: EMS Departure-Patient Inst. Referrals: JUDITH CARRANZA MD (PCP/Family) Primary Care Physician Copy Copies To 1: JUDITH CARRANZA MD, JOSHUA T MD Dec 28, 2022 18:17
[2022-12-28 18:19] LABS: BAND NEUTROPHILS 2 %; LYMPHOCYTES % (MANUAL) 4 %; MONOCYTES % (MANUAL) 5 %; NEUTROPHILS % (MANUAL) 89 %
[2022-12-28 18:20] LABS: PLATELET ESTIMATE ADEQUATE; RBC MORPH NORMAL; TOXIC GRANULATION/VACUOLAZATIO 1+
[2022-12-28 18:27] LABS: INR 1.3 (0.8-1.4); PROTHROMBIN TIME PATIENT 17.1 SEC (12.2-14.7)
[2022-12-28] MEDS ORDERED: LIDOCAINE UROJET 2% GEL 10 ML PKG TOP ONE (18:30)
[2022-12-28] MEDS ORDERED: ACETAMINOPHEN 650 MG SUPPOSITORY PR ONE (18:30)
[2022-12-28] MEDS ORDERED: CEFEPIME INJECTION 2,000 MG in NS (IVPB) 50 ML 50 ML IV ONE (18:30)
[2022-12-28 18:52] LABS: BILIRUBIN,URINE NEGATIVE (NEGATIVE); CLARITY,URINE SL CLOUDY; COLOR,URINE YELLOW; GLUCOSE, URINE (UA) NEGATIVE (NEGATIVE); KETONES,URINE NEGATIVE (NEGATIVE); LEUKOCYTE ESTERASE ,URINE 3+ (NEGATIVE); NITRITE,URINE NEGATIVE (NEGATIVE); PROTEIN,URINE 2+ (NEGATIVE)
[2022-12-28 18:57] LABS: BACTERIA,URINE LARGE /HPF; WBC,URINE >100 /HPF
--- NOTE | 2022-12-28 19:01 | Diagnostic Imaging Report ---
Procedure: CT chest, abdomen, and pelvis without contrast. Technique: Multiple contiguous axial images were obtained through the chest, abdomen, and pelvis without the use of intravenous contrast. Auto Exposure Controls were utilized during the CT exam to meet ALARA standards for radiation dose reduction. Date: December 28, 2022. Indication: 67-year-old male, altered mental status. Recurrent falls. Chest and abdominal pain. Comparison: CT abdomen and pelvis without contrast October 02, 2022. Findings: There is no identified pulmonary nodule or lung mass. There is no focal airspace consolidation. There is no pneumothorax. There is no sizable pleural effusion. The heart is not enlarged. There is no identified pericardial effusion. There is no abnormally enlarged mediastinal or axillary lymph node meeting CT size criteria for adenopathy. There is a low-attenuation right adrenal nodule which measures up to 4.2 cm in diameter. Internal attenuation is -1 Hounsfield unit compatible with adrenal adenoma. There are also smaller left-sided adrenal adenomas present as well. There is moderate right hydroureteronephrosis and stranding along the right ureter. There is no identified current ureteral stone. There is a punctate 1 to 2 mm nonobstructing right renal stone on axial image 94. There is no left hydronephrosis. The left urinary collecting system is not distended. Urinary bladder is unremarkable. The intestinal tract is not distended. There is inflammatory stranding in the right lower quadrant. There is no free intraperitoneal air. There is no well-demarcated drainable fluid collection. There is no particularly sizable volume free fluid in the abdomen or pelvis. There are atherosclerotic calcifications. There is no identified abnormally enlarged lymph node in the abdomen or pelvis meeting CT size criteria for adenopathy. Please see same day CT thoracic and lumbar spine report for findings of the thoracic and lumbar spine. There is no otherwise identified acute fracture at the level of the chest, abdomen, or pelvis. There are degenerative changes of the spine. Impression: 1. Moderate right hydroureteronephrosis without identified causative etiology. 2. Bilateral adrenal adenomas. 3. No identified acute abnormality at the level of the chest. Dictated by: Dictated on workstation # [id number]
[2022-12-28 19:02] LABS: AMPHETAMINE SCREEN, URINE NEGATIVE (NEGATIVE); BARBITURATE SCREEN URINE NEGATIVE (NEGATIVE); BENZODIAZEPINES SCREEN URINE NEGATIVE (NEGATIVE); CANNABINOID SCREEN, URINE POSITIVE (NEGATIVE); COCAINE SCREEN URINE NEGATIVE (NEGATIVE); METHADONE STAT NEGATIVE (NEGATIVE); OPIATE SCREEN URINE NEGATIVE (NEGATIVE); OXYCODONE STAT NEGATIVE (NEGATIVE); PROPOXYPHENE STAT NEGATIVE (NEGATIVE); TRICYCLIC ANTIDEPRESSANTS SCRE NEGATIVE (NEGATIVE)
--- NOTE | 2022-12-28 19:02 | Diagnostic Imaging Report ---
Procedure: CT head and CT cervical spine without contrast. Technique: Multiple contiguous axial images were obtained through the brain and cervical spine without the use of intravenous contrast. Sagittal and coronal reformations through the cervical spine were then performed. Auto Exposure Controls were utilized during the CT exam to meet ALARA standards for radiation dose reduction. Date: December 28, 2022. Indication: 67-year-old male, altered mental status. Recurrent falls. Head and neck pain. Comparison: None. Findings: There are some motion limitations of the exam. There is no identified skull fracture. There is proportional prominence of the ventricles and additional CSF spaces consistent with mild to moderate cerebral volume loss. There is high attenuation along the falx which could relate to calcifications along the falx although small subdural hematoma is difficult to entirely exclude. There is no evidence of an acute intraparenchymal hemorrhage. There is no mass effect or midline shift. There are findings of encephalomalacia in the right frontal lobe. There is no identified facet joint subluxation or dislocation. There are multilevel facet degenerative changes of the cervical spine. There are multilevel advanced disc degenerative changes of the cervical spine. There is no asymmetric widening of the cervical disc heights. There is no prominent prevertebral soft tissue swelling. There is no identified acute fracture of the cervical spine. The visualized portions of the lung apices are clear. Impression: 1. High attenuation along the falx which may relate to calcifications along the falx although very small subdural hematoma is difficult to entirely exclude. Correlation with prior imaging may be of benefit. 2. No mass effect or midline shift. 3. Encephalomalacia in the right frontal lobe and mild to moderate cerebral volume loss. 4. No acute fracture of the cervical spine. 5. Multilevel degenerative changes of the cervical spine. Dictated by: Dictated on workstation # [id number]
--- NOTE | 2022-12-28 19:05 | Diagnostic Imaging Report ---
PROCEDURE: CT thoracic and lumbar spine without contrast. TECHNIQUE: Multiple contiguous axial images were obtained through the thoracic and lumbar spine without the use of intravenous contrast. Sagittal and coronal reformations were then performed. All CT scans use one or more of the following dose optimizing techniques: automated exposure control, MA and/or KvP adjustment based on a patient size and exam type, or iterative reconstruction. INDICATION: Altered mental status. Fall. Back pain. FINDINGS: Alignment of the thoracic spine is normal. The lumbar spine demonstrates slight degenerative retrolisthesis of L1 on L2. Alignment is otherwise normal. Within the thoracic spine, there are mild degenerative endplate changes with ventral osteophytes compatible with diffuse idiopathic skeletal hyperostosis. The facets are normally aligned. There is no facet joint or disc space widening. Vertebral body heights are maintained. There is no acute thoracic fracture. Within the lumbar spine, there is severe background degenerative disc disease and facet arthropathy with advanced multilevel endplate changes, multiple levels of vacuum disc phenomenon, endplate spurring and prominent hypertrophic facets. There are, however, no findings of an acute lumbar fracture. There is no high-grade thoracic canal stenosis. Within the lumbar spine, there appear to be severe narrowing of the central canal at the L3-L4 and L4-L5 levels due to disc bulging and facet arthropathy. The bones of the pelvis demonstrate no acute process. There is no evidence of a posterior rib fracture. The lungs are clear where visualized. Bilateral low density adrenal masses compatible with adenomas. There is partial visualization of some apparent right-sided hydronephrosis and right perinephric fat stranding. IMPRESSION: 1. Background degenerative features within the thoracic and lumbar spine without CT findings of an acute fracture or traumatic malalignment. 2. High-grade canal stenosis present at both the L3-L4 and L4-L5 levels. 3. Partial visualization of apparent right-sided hydronephrosis and right perinephric fat stranding. Dictated by: Dictated on workstation # [id number]
[2022-12-28 20:00] VITALS: BP 111/72
== END 2022-12-28 20:00 | disposition short-term general hospital (02) ==
LOC: EDUNIT# 17:22 → ER FS 17:23
DX: A41.9 Sepsis, unspecified organism (principal); N39.0 Urinary tract infection, site not specified; I12.9 Hypertensive chronic kidney disease with stage 1 through stage 4 chronic kidney disease, or unspecified chronic kidney disease; N13.2 Hydronephrosis with renal and ureteral calculous obstruction; R93.5 Abnormal findings on diagnostic imaging of other abdominal regions, including retroperitoneum; E87.1 Hypo-osmolality and hyponatremia; N18.9 Chronic kidney disease, unspecified; R73.9 Hyperglycemia, unspecified; F17.210 Nicotine dependence, cigarettes, uncomplicated; Z20.822 Contact with and (suspected) exposure to COVID-19; W18.30XA Fall on same level, unspecified, initial encounter; Y92.002 Bathroom of unspecified non-institutional (private) residence as the place of occurrence of the external cause
CPT/HCPCS: 36415; 51702; 70450; 71045; 71250; 72125; 72128; 72131; 74176; 80053; 80306; 81000; 83605; 85007; 85027; 85610; 85730; 87040; 87088; 87636; 99285; G0480; 80320